=== PATIENT | male | born 1975 | race Two or more races ===

== ENCOUNTER 2017-09-03 13:24 | Emergency (ER) | payer OTHER ==
[~2017-09-03] VITALS: Ht 188 cm; Wt 90.7 kg
[2017-09-03 16:00] VITALS: BP 132/94
== END 2017-09-03 16:23 | disposition home or self-care (01) ==
LOC: ER 13:31
DX: S66.911A Strain of unspecified muscle, fascia and tendon at wrist and hand level, right hand, initial encounter (principal); Z90.49 Acquired absence of other specified parts of digestive tract; X50.0XXA Overexertion from strenuous movement or load, initial encounter; Y93.89 Activity, other specified; Y99.8 Other external cause status; Y92.89 Other specified places as the place of occurrence of the external cause
CPT/HCPCS: 73130

== ENCOUNTER 2019-11-04 04:40 | Inpatient (IN) | payer OTHER ==
[~2019-11-04] VITALS: Ht 188 cm; Wt 101.1 kg
[2019-11-04 08:10] LABS: Basophils # (auto) 0 10 ^3/uL (0-0.2); Eosinophils # (auto) 0.1 10 ^3/uL (0-0.8); Lymphocytes # (auto) 1.3 10 ^3/uL (0.4-5.4); Monocytes # (auto) 0.3 10 ^3/uL (0-1.3); Monocytes % (auto) 4.6 % (0.0-12.0)
[2019-11-04 08:11] LABS: Basophils % (auto) 0.7 % (0.0-2.0); Eosinophils % (auto) 1.1 % (0.0-7.0); Hematocrit 52.5 % (41.0-53.0); Hemoglobin 17.8 g/dL (13.5-17.5); Lymphocytes % (auto) 20.3 % (10.0-50.0); Mean Corpuscular Hemoglobin 31.6 pg (28.0-32.0); Mean Corpuscular Hgb Conc. 33.8 g/dL (32.0-36.0); Mean Corpuscular Volume 93.5 fL (80.0-100.0); Neutrophils # (auto) 4.7 10 ^3/uL (1.6-8.6); Neutrophils % (auto) 73.3 % (37.0-80.0); Nucleated Red Blood Cells % 0.2 %; Platelet Count (auto) 238 10^3/uL (140-450); Red Blood Cells 5.62 10^6/uL (4.5-5.90); Red Cell Distribution Width 12.9 % (11.8-14.3); White Blood Cell 6.4 10^3/uL (4.4-10.8)
[2019-11-04 08:25] LABS: INR 1.01 (0.9-1.15); Partial Thromboplastin Time 28.2 sec (23.64-32.05)
[2019-11-04] MEDS ORDERED: ASPirin 81 mg TAB PO ONE (08:30)
[2019-11-04 08:34] LABS: Albumin 3.8 g/dL (3.4-5.0); Anion Gap 4 (5-15); Blood Urea Nitrogen 11 mg/dL (7-18); Carbon Dioxide 29 mmol/L (21-32); Chloride 104 mmol/L (98-107); Glucose 107 mg/dL (74-106); Potassium 4.3 mmol/L (3.5-5.1); Sodium 137 mmol/L (136-145)
[2019-11-04 08:40] LABS: Alanine Aminotransferase 120 U/L (16-61); Alkaline Phosphatase 145 U/L (45-117); Aspartate Aminotransferase 50 U/L (15-37); BUN/Creatinine Ratio 10.1; Bilirubin, Total 1.2 mg/dL (0.2-1.0); GFR African American 94 mL/min; GFR Non-African American 77 mL/min; Total Protein 8.9 g/dL (6.4-8.2)
[2019-11-04] MEDS ORDERED: IOHEXOL 300 MG/ML 100ML BOTTLE IJ ONE (09:25)
[2019-11-04] MEDS ORDERED: MORPHINE SULF INJ 2 MG/ML SYRINGE 1ML IV PRN (12:45)
[2019-11-04] MEDS ORDERED: TEMAZEPAM 15 MG CAP PO PRN (12:45)
[2019-11-04] MEDS ORDERED: ONDANSETRON HCL 4 MG/2 ML VIAL IV PRN (12:45)
[2019-11-04] MEDS ORDERED: ACETAMINOPHEN 500 MG TAB PO PRN (12:45)
[2019-11-04] MEDS ORDERED: NITROGLYCERIN 0.4 MG SL TAB SL PRN (12:45)
[2019-11-04] MEDS ORDERED: METOPROLOL TARTRATE 25 MG TAB PO ONE (12:45)
[2019-11-04] MEDS ORDERED: ASCO1CHW5 PO (13:48)
--- NOTE | 2019-11-04 21:20 | NUR ---
Telemetry admit from [facility] admitted to Telemetry unit after NO SBAR received. Patient oriented to Tito ron RN, west unit, 271 room, B bed, and unit policies regarding patient care and visiting hours. Patient now on continuous telemetry monitoring, tele box #[id number] and telemetry reading on arrival to unit is sinus rhythm. Patient placed on bedside oxygen, weighed by bedscale and encouraged to call if they need something. All questions and concerns addressed, patient verbalized understanding.
[2019-11-04 21:50] VITALS: BP 138/88
[2019-11-04 22:00] VITALS: BP 138/88
[2019-11-04] MEDS ORDERED: ATORVASTATIN 20 MG TAB PO SCH (22:00)
[2019-11-04] MEDS: METOPROLOL TARTRATE 25 MG TAB PO SCH (22:45)
--- NOTE | 2019-11-05 03:48 | NUR ---
Collected knife from patient. sent with security. bag number: [id number]
[2019-11-05 05:51] LABS: Basophils # (auto) 0 10 ^3/uL (0-0.2); Basophils % (auto) 0.6 % (0.0-2.0); Eosinophils # (auto) 0.2 10 ^3/uL (0-0.8); Eosinophils % (auto) 2.3 % (0.0-7.0); Hematocrit 51.5 % (41.0-53.0); Hemoglobin 17.6 g/dL (13.5-17.5); Lymphocytes # (auto) 1.4 10 ^3/uL (0.4-5.4); Mean Corpuscular Hgb Conc. 34.2 g/dL (32.0-36.0); Mean Corpuscular Volume 93.5 fL (80.0-100.0); Monocytes # (auto) 0.4 10 ^3/uL (0-1.3); Monocytes % (auto) 5.2 % (0.0-12.0); Neutrophils # (auto) 5.2 10 ^3/uL (1.6-8.6); Neutrophils % (auto) 72.9 % (37.0-80.0); Nucleated Red Blood Cells % 0.1 %; Platelet Count (auto) 227 10^3/uL (140-450); Red Blood Cells 5.51 10^6/uL (4.5-5.90); Red Cell Distribution Width 13.2 % (11.8-14.3); White Blood Cell 7.1 10^3/uL (4.4-10.8)
[2019-11-05 06:00] VITALS: BP 111/71
[2019-11-05 06:05] LABS: Calcium 8.4 mg/dL (8.5-10.1); Potassium 4.4 mmol/L (3.5-5.1)
[2019-11-05 06:08] LABS: BUN/Creatinine Ratio 12.6
--- NOTE | 2019-11-05 07:35 | NUR ---
RECEIVED PATIENT FROM [facility] SHIFT RN, AWAKE, ALERT AND ORIENTED X4. DENIES PLAN, NO SOB OR S/S DISTRESS NOTED. PLAN OF CARE DISCUSSED. ADVISED TO CALL FOR ASSISTANCE PRN. BED IN LOW AND LOCKED POSITION WITH X2 BED RAILS UP, CALL LIGHT AND PHONE WITHIN REACH. WILL CONTINUE TO MONITOR Q1HR AND PRN.
[2019-11-05 08:00] VITALS: BP 134/85
[2019-11-05] MEDS: ASPirin-EC 81 mg tab PO SCH (09:41)
[2019-11-05] MEDS: METOPROLOL TARTRATE 25 MG TAB PO SCH ×2 (09:42→21:44)
--- NOTE | 2019-11-05 09:42 | NUR ---
DR HEATH AT BEDSIDE, DISCUSSED PLAN OF CARE WITH PATIENT. PATIENT VERBALIZED UNDERSTANDING.
[2019-11-05 12:00] VITALS: BP 132/91
[2019-11-05 16:57] VITALS: BP 124/85
--- NOTE | 2019-11-05 19:29 | NUR ---
OPENING SHIFT NOTE Assumed care of patient who is A&O x4. Currently on RA with no s/s of distress. Denies Pain at this time. PIV in left AC is intact and patent. Flushed with 10ml NS. POC discussed and patient verbalizes understanding. Patient to be kept NPO after 0000 for scheduled Cardiolite test tomorrow. Bed is in low locked position with side rails up x2. Call light is within reach and patient encouraged to call for assistance when needed. Will continue to monitor for changes PRN.
[2019-11-05 22:00] VITALS: BP 122/69
[2019-11-05] MEDS ORDERED: ATORVASTATIN 20 MG TAB PO SCH (22:00)
[2019-11-06 05:00] VITALS: BP 111/71
--- NOTE | 2019-11-06 06:04 | NUR ---
IV insertion IV access obtained, via clean sterile technique by inserting 22 gauge catheter at right hand after 1 attempt. IV secured properly. No trauma to site. Patient tolerated well.
--- NOTE | 2019-11-06 08:00 | NUR ---
Morning note Patient resting in bed with even and unlabored respirations, no distress noted. Instructed patient on POC, fall precautions and to call for assistance as needed. Patient verbalized understanding. Fall precautions in place with call light within reach.
[2019-11-06] MEDS ORDERED: ADENOSINE 85 MG in GIVE UN-DILUTED 0 ML IV STA (08:31)
[2019-11-06 09:00] VITALS: BP 121/82
[2019-11-06] MEDS: METOPROLOL TARTRATE 25 MG TAB PO SCH (10:14)
[2019-11-06] MEDS: ASPirin-EC 81 mg tab PO SCH (10:14)
--- NOTE | 2019-11-06 10:15 | NUR ---
RE: Medication held Scheduled PO medication held for ordered stress test.
--- NOTE | 2019-11-06 10:18 | NUR ---
Patient off unit via wheelchair to stress test Respirations even and unlabored, no distress noted. (x2) IV's patent with no s/s of infiltration or leaking noted.
[2019-11-06] MEDS ORDERED: ASPI-394 PO (11:34)
[2019-11-06] MEDS ORDERED: ATOR20TA50 PO (11:34)
[2019-11-06] MEDS ORDERED: MET25T PO (11:34)
[2019-11-06 13:00] VITALS: BP 120/73
[2019-11-06 13:45] VITALS: BP 121/82
--- NOTE | 2019-11-06 14:20 | NUR ---
was at bedside - Dr. Mcgovern
--- NOTE | 2019-11-06 14:44 | NUR ---
Discharge Discharge education and paperwork provided to the patient per MD order. Patient verbalized understanding. (x2) IV's removed with aseptic technique, catheters intact. Dressings applied. Patient tolerated well, no trauma to site. Telemonitor removed and returned. Patient reports having all personal belongings. 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 Respirations even and unlabored, no distress noted. Patient denies CP, SOB, N/V, or abdominal pain. Patient refused wheelchair. Patient ambulated to hospital lobby with a steady gait accompanied by a staff member.
== END 2019-11-06 14:40 | disposition home or self-care (01) | DRG 313 ==
LOC: ER 04:47 → TELE 04:48 → TELE-WESTW 21:23
PROVIDERS: ADMIT Nurse Practitioner Family; ATTEND Internal Medicine Nephrology
DX: R07.89 Other chest pain (principal); D75.1 Secondary polycythemia; E78.5 Hyperlipidemia, unspecified; J45.909 Unspecified asthma, uncomplicated; F41.9 Anxiety disorder, unspecified; K40.90 Unilateral inguinal hernia, without obstruction or gangrene, not specified as recurrent; K76.0 Fatty (change of) liver, not elsewhere classified; Z83.3 Family history of diabetes mellitus; Z90.49 Acquired absence of other specified parts of digestive tract; Z79.899 Other long term (current) drug therapy
CPT/HCPCS: 36415; 71046; 74177; 76705; 78452; 80048; 80053; 80061; 83036; 83880; 84484; 85025; 85379; 85610; 85730; 93005; 93017; 93306; G0378; J0153

== ENCOUNTER → 2020-06-24 | Outpatient (CLI) | payer OTHER ==
[~2020-06-24] MED LIST: ASCO1CHW5 PO; ASPI-394 PO; ATOR20TA50 PO; MET25T PO
== END | disposition home or self-care (01) ==
LOC: Rad HDHVI 08:09
PROVIDERS: ATTEND Internal Medicine Cardiovascular Disease
DX: I51.7 Cardiomegaly (principal)
CPT/HCPCS: 93306